=== PATIENT | female | born 1975 | race Caucasian/White ===

== ENCOUNTER 2016-09-27 14:00 | Emergency (ER) | payer OTHER ==
[2016-09-27] MEDS ORDERED: DIAZEPAM 5 MG TAB ONE (16:03)
== END 2016-09-27 17:25 | disposition home or self-care (01) ==
LOC: ER 14:00
DX: R00.2 Palpitations (principal); F41.1 Generalized anxiety disorder
CPT/HCPCS: 36415; 80053; 82553; 82947; 84484; 85025; 85610; 85730; 93005